=== PATIENT | male | born 1985 | race African-American/Black ===

== ENCOUNTER 2017-12-15 13:42 | Emergency (ER) | payer OTHER ==
[~2017-12-15] VITALS: Ht 170.2 cm; Wt 111.6 kg
[~2017-12-15 13:42] MED LIST: ACCUNEB SO1.25 MG/1 INH; ADVAIR HFA115 MCG/21 INH; ALBUTEROL2.5 MG/0.5 INH; BACTRIM DS TAB1 EACH PO; BACTROBAN CREAM30 G1 TOP; DARVOCET-N 1001 EACH PO; DOXYCYCLINE 10100 MG PO; DUONEB 2.5-0.5 M3 ML INH; FLEXERIL PO; IBUPROFEN 600600 M1 PO; IBUPROFEN 800800 M1 PO; LEVAQUIN 500 M500 M1 PO; LORATIDINE 10 M10 M1 PO; MUCINEX DM TABL1 TA1 PO; NOHOMEMEDICATIONS; NORCO 5-325 TA1 EACH PO; PREDNISONE 10 M10 M1; PREDNISONE 20 M20 M1 PO; PREDNISONE50 MG PO; ULTRAM 50MG TAB50 MG PO; VENTOLIN HFA 1818 GM INH; VICODIN 5-5001 EACH PO; ZPAK PO
[2017-12-15] MEDS ORDERED: ALBUTEROL2.5 MG/31 INH (15:35)
[2017-12-15] MEDS ORDERED: TESSALON PERLE100 MG PO (15:35)
[2017-12-15] MEDS ORDERED: PREDNISONE 20 M20 MG PO (15:35)
[2017-12-15 15:58] VITALS: BP 142/71
== END 2017-12-15 15:59 | disposition home or self-care (01) ==
LOC: ER 13:42
DX: J45.901 Unspecified asthma with (acute) exacerbation (principal); F17.210 Nicotine dependence, cigarettes, uncomplicated

== ENCOUNTER 2018-03-01 22:20 | Emergency (ER) | payer OTHER ==
[~2018-03-01] VITALS: Ht 170.2 cm; Wt 113.4 kg
[~2018-03-01 22:20] MED LIST changes: +ALBUTEROL2.5 MG/31 INH; +PREDNISONE 20 M20 MG PO; +TESSALON PERLE100 MG PO
[2018-03-01] MEDS ORDERED: PREDNISONE 20 M20 MG PO (23:39)
[2018-03-03] MEDS ORDERED: AMOXICILLIN500 M1 PO (18:59)
[2018-03-03] MEDS ORDERED: IBUPROFEN 600600 M1 PO (19:03)
[2018-03-03] MEDS ORDERED: TESSALON PERLE100 MG PO (19:03)
== END 2018-03-02 00:47 | disposition home or self-care (01) ==
LOC: ER 22:20
DX: J06.9 Acute upper respiratory infection, unspecified (principal); R09.81 Nasal congestion; J45.909 Unspecified asthma, uncomplicated

== ENCOUNTER 2018-03-03 17:00 | Emergency (ER) | payer OTHER ==
[~2018-03-03] VITALS: Ht 170.2 cm; Wt 113.4 kg
[2018-03-03 17:35] LABS: HEMATOCRIT 42.2 % (42.0-52.0); HEMOGLOBIN 14.5 gm/dL (14.0-18.0); MCHC 34.3 g/dL (28.0-37.0); MCV 93.3 fL (80.0-100.0); PLATELET COUNT 165 thou/uL (150-400); RBC 4.52 mil/uL (4.50-6.00); WBC 9.6 thou/uL (4.0-11.0)
[2018-03-03 17:43] LABS: CALCIUM 8.8 mg/dL (8.5-10.1); CREATININE 1.8 mg/dL (0.7-1.3); POTASSIUM 4.1 mmol/L (3.5-5.1)
[2018-03-03 17:54] LABS: ABSOLUTE NEUTROPHILS 6.1 thou/uL (1.4-8.2)
[2018-03-03] MEDS ORDERED: AMOXICILLIN500 M1 PO (18:59)
[2018-03-03] MEDS ORDERED: IBUPROFEN 600600 M1 PO (19:03)
[2018-03-03] MEDS ORDERED: TESSALON PERLE100 MG PO (19:03)
== END 2018-03-03 19:35 | disposition home or self-care (01) ==
LOC: ER 17:00
PROVIDERS: Nurse Practitioner
DX: J02.9 Acute pharyngitis, unspecified (principal); J45.909 Unspecified asthma, uncomplicated

== ENCOUNTER 2018-11-13 04:15 | Emergency (ER) | payer OTHER ==
[~2018-11-13] VITALS: Ht 170.2 cm; Wt 113.4 kg
[~2018-11-13 04:15] MED LIST changes: +AMOXICILLIN500 M1 PO
[2018-11-13 04:19] VITALS: BP 127/81
[2018-11-13] MEDS ORDERED: NOHOMEMEDICATIONS (04:23)
== END 2018-11-13 05:01 | disposition home or self-care (01) ==
LOC: ER 04:15
DX: S01.511A Laceration without foreign body of lip, initial encounter (principal); J45.909 Unspecified asthma, uncomplicated; Q85.00 Neurofibromatosis, unspecified; Z87.891 Personal history of nicotine dependence; W22.8XXA Striking against or struck by other objects, initial encounter; Y92.89 Other specified places as the place of occurrence of the external cause; Y93.89 Activity, other specified; Y99.8 Other external cause status

== ENCOUNTER 2018-11-18 17:49 | Emergency (ER) | payer OTHER ==
[~2018-11-18] VITALS: Ht 170.2 cm; Wt 113.4 kg
[2018-11-18 18:45] VITALS: BP 133/75
== END 2018-11-18 18:46 | disposition home or self-care (01) ==
LOC: ER 17:49
DX: S01.511D Laceration without foreign body of lip, subsequent encounter (principal); J45.909 Unspecified asthma, uncomplicated; Q85.00 Neurofibromatosis, unspecified; Z87.891 Personal history of nicotine dependence; X58.XXXD Exposure to other specified factors, subsequent encounter

== ENCOUNTER 2019-11-01 12:58 | Emergency (ER) | payer OTHER ==
[~2019-11-01] VITALS: Ht 170.2 cm; Wt 108.9 kg
[2019-11-01 14:32] VITALS: BP 112/78
[2019-11-01] MEDS ORDERED: CYCLOBENZAPRINE5 MG PO (14:32)
[2019-11-01] MEDS ORDERED: LIDOCAINE PAIN1 EACH TOP (14:32)
== END 2019-11-01 14:33 | disposition home or self-care (01) ==
LOC: ER 12:58
DX: S39.012A Strain of muscle, fascia and tendon of lower back, initial encounter (principal); J45.909 Unspecified asthma, uncomplicated; Z87.891 Personal history of nicotine dependence; V89.2XXA Person injured in unspecified motor-vehicle accident, traffic, initial encounter; Y92.89 Other specified places as the place of occurrence of the external cause; Y93.89 Activity, other specified; Y99.8 Other external cause status

== ENCOUNTER 2019-11-23 21:32 | Emergency (ER) | payer BC ==
[~2019-11-23] VITALS: Ht 170.2 cm; Wt 111.1 kg
[~2019-11-23 21:32] MED LIST changes: +CYCLOBENZAPRINE5 MG PO; +LIDOCAINE PAIN1 EACH TOP
[2019-11-23 21:34] VITALS: BP 132/76
== END 2019-11-23 22:39 | disposition home or self-care (01) ==
LOC: ER 21:32
DX: I83.891 Varicose veins of right lower extremity with other complications (principal); J45.909 Unspecified asthma, uncomplicated; Z87.891 Personal history of nicotine dependence